=== PATIENT | male | born 1965 | race Two or more races ===

== ENCOUNTER 2021-11-23 09:30 | Inpatient (IN) | payer OTHER ==
[~2021-11-23] VITALS: Ht 165.1 cm; Wt 70.8 kg
[2021-11-23] MEDS ORDERED: MORPHINE SULFATE INJ 2 MG/ml SYRG IV PRN (19:00)
[2021-11-23] MEDS ORDERED: DEXTROSE (50%) 50ML SYRG IV PRN (19:00)
[2021-11-23] MEDS ORDERED: NITROGLYCERIN 0.4 MG SL TAB SL PRN (19:00)
[2021-11-23 20:01] LABS: Basophils # (auto) 0 10 ^3/uL (0-0.2); Basophils % (auto) 0.6 % (0.0-2.0); Eosinophils # (auto) 0.1 10 ^3/uL (0-0.8); Eosinophils % (auto) 1.2 % (0.0-7.0); Hematocrit 39.6 % (41.0-53.0); Hemoglobin 13.1 g/dL (13.5-17.5); Lymphocytes # (auto) 1.4 10 ^3/uL (0.4-5.4); Lymphocytes % (auto) 27.3 % (10.0-50.0); Mean Corpuscular Hemoglobin 28.6 pg (28.0-32.0); Mean Corpuscular Hgb Conc. 33.2 g/dL (32.0-36.0); Monocytes # (auto) 0.5 10 ^3/uL (0-1.3); Monocytes % (auto) 9.8 % (0.0-12.0); Neutrophils # (auto) 3.2 10 ^3/uL (1.6-8.6); Neutrophils % (auto) 61.1 % (37.0-80.0); Red Cell Distribution Width 13.8 % (11.8-14.3); White Blood Cell 5.2 10^3/uL (4.4-10.8)
[2021-11-23 20:19] LABS: Albumin 3.3 g/dL (3.4-5.0); Calcium 8.3 mg/dL (8.5-10.1)
[2021-11-23 20:22] LABS: Bilirubin, Total 0.3 mg/dL (0.2-1.0); Total Protein 6.9 g/dL (6.4-8.2)
[2021-11-23 20:56] LABS: INR 0.97 (0.9-1.15); Partial Thromboplastin Time 24.8 sec (24.6-33.4)
[2021-11-23 22:00] VITALS: BP 116/74
[2021-11-24 05:00] VITALS: BP 118/79
[2021-11-24] MEDS ORDERED: InsuLIN REG 1unit/0.01ml Soln (100units/ml) SC SCH ×4 (07:00→22:00)
[2021-11-24] MEDS ORDERED: glipiZIDE 5 MG TAB PO SCH (07:00)
[2021-11-24 08:00] VITALS: BP 112/74
[2021-11-24] MEDS ORDERED: ACCU-CHEK COMFORT CURVE STRIP VI SCH ×3 (10:00→22:00)
[2021-11-24 12:00] VITALS: BP 112/74
[2021-11-24] MEDS: ASPirin 81 mg TAB PO SCH (12:37)
[2021-11-24] MEDS: METOPROLOL TARTRATE 25 MG TAB PO SCH (12:38)
[2021-11-24] MEDS: ENOXAPARIN SOD 40 MG/0.4 ML SYRINGE SC SCH (12:38)
[2021-11-24] MEDS: SOD CHL 0.45% 1,000 ML IV SCH ×2 (12:39→20:24)
[2021-11-24 16:45] VITALS: BP 117/75
[2021-11-24] MEDS: glipiZIDE 5 MG TAB PO SCH (17:10)
[2021-11-24] MEDS ORDERED: InsuLIN REG 1unit/0.01ml Soln (100units/ml) SC STA (21:05)
[2021-11-24] MEDS ORDERED: DEXTROSE (50%) 50ML SYRG IV PRN ×3 (21:15→21:45)
[2021-11-24 22:00] VITALS: BP 112/69
[2021-11-24] MEDS: InsuLIN REG 1unit/0.01ml Soln (100units/ml) SC SCH (22:03)
[2021-11-24] MEDS: ACCU-CHEK COMFORT CURVE STRIP VI SCH (22:04)
[2021-11-25] VITALS (10 sets, daily range): BP systolic 107–129; BP diastolic 56–86
[2021-11-25] MEDS: ACCU-CHEK COMFORT CURVE STRIP VI SCH ×6 (01:21→22:31)
[2021-11-25] MEDS: InsuLIN REG 1unit/0.01ml Soln (100units/ml) SC SCH ×6 (01:21→22:34)
[2021-11-25] MEDS: SOD CHL 0.45% 1,000 ML IV SCH (06:53)
[2021-11-25] MEDS: glipiZIDE 5 MG TAB PO SCH ×2 (06:54→19:20)
[2021-11-25] MEDS ORDERED: InsuLIN REG 1unit/0.01ml Soln (100units/ml) SC SCH (07:00)
[2021-11-25] MEDS ORDERED: LIDOCAINE 2%HCL (LOCAL ANESTH.) INJ 20ML MDV ONE (07:25)
[2021-11-25] MEDS ORDERED: IOHEXOL 350 MG/ML 100ML IJ ONE (07:25)
[2021-11-25] MEDS ORDERED: IODIXANOL 320MG/ML 100ML BTL IV ONE (07:25)
[2021-11-25] MEDS ORDERED: fentaNYL CITRATE 100 MCG/2 ML VL ONE (08:04)
[2021-11-25] MEDS ORDERED: ANGIOMAX 250 MG VIAL IV ONE (08:04)
[2021-11-25] MEDS ORDERED: SODIUM CHL 0.9% 50 ML ONE ×2 (08:05→08:53)
[2021-11-25] MEDS ORDERED: MIDAZOLAM HCL 2MG/2ML 2ml VIAL (1mg/ml) ONE (08:05)
[2021-11-25] MEDS ORDERED: ATROPINE SULF 1 MG/10ml SYR ONE (08:44)
[2021-11-25] MEDS ORDERED: niCARdipine 25 MG/10 ML VIAL IV ONE (08:45)
[2021-11-25] MEDS ORDERED: PHENYLEPHRINE HCL 10 MG/ML VL ONE (08:45)
[2021-11-25] MEDS ORDERED: EPINEPHrine HCL 1 MG/10 ML SYRG ONE (08:45)
[2021-11-25] MEDS ORDERED: NITROGLYCERIN 5MG/ML 10ML VIAL IV ONE (08:53)
[2021-11-25] MEDS ORDERED: CLOPIDOGREL 300 MG TAB ONE (09:24)
[2021-11-25] MEDS: ASPirin 81 mg TAB PO SCH (15:36)
[2021-11-25] MEDS: METOPROLOL TARTRATE 25 MG TAB PO SCH (15:41)
[2021-11-25] MEDS: ENOXAPARIN SOD 40 MG/0.4 ML SYRINGE SC SCH (15:42)
[2021-11-25] MEDS: SODIUM CHLORIDE 0.9% 1,000 ML IV SCH ×2 (15:42→20:30)
[2021-11-25] MEDS: PANTOPRAZOLE 40 MG TAB PO SCH (15:42)
[2021-11-25] MEDS: ATORVASTATIN 20 MG TAB PO SCH (22:31)
[2021-11-26] MEDS: ACCU-CHEK COMFORT CURVE STRIP VI SCH ×6 (01:47→22:26)
[2021-11-26] MEDS: InsuLIN REG 1unit/0.01ml Soln (100units/ml) SC SCH ×6 (01:49→22:26)
[2021-11-26 05:00] VITALS: BP 114/77
[2021-11-26] MEDS: SODIUM CHLORIDE 0.9% 1,000 ML IV SCH ×2 (05:15→16:30)
[2021-11-26] MEDS: glipiZIDE 5 MG TAB PO SCH ×2 (06:21→17:42)
[2021-11-26 06:23] LABS: Albumin 2.9 g/dL (3.4-5.0); Calcium 7.8 mg/dL (8.5-10.1); Potassium 3.6 mmol/L (3.5-5.1)
[2021-11-26 06:28] LABS: BUN/Creatinine Ratio 16.2; Bilirubin, Total 0.3 mg/dL (0.2-1.0); Total Protein 6.3 g/dL (6.4-8.2)
[2021-11-26 08:40] VITALS: BP 119/79
[2021-11-26] MEDS: CLOPIDOGREL BISULFATE 75 MG TAB PO SCH (09:25)
[2021-11-26] MEDS: METOPROLOL TARTRATE 25 MG TAB PO SCH (09:25)
[2021-11-26] MEDS: ASPirin 81 mg TAB PO SCH (09:25)
[2021-11-26] MEDS: PANTOPRAZOLE 40 MG TAB PO SCH (09:26)
[2021-11-26] MEDS: ENOXAPARIN SOD 40 MG/0.4 ML SYRINGE SC SCH (09:26)
[2021-11-26] MEDS ORDERED: CLOPIDOGREL BISULFATE 75 MG TAB PO SCH (10:00)
[2021-11-26] MEDS: SOD CHL 0.45% 1,000 ML IV SCH (10:50)
[2021-11-26 12:38] VITALS: BP 118/75
[2021-11-26 16:30] VITALS: BP 115/75
[2021-11-26 22:00] VITALS: BP 116/75
[2021-11-26] MEDS: ATORVASTATIN 20 MG TAB PO SCH (22:20)
[2021-11-27] MEDS: InsuLIN REG 1unit/0.01ml Soln (100units/ml) SC SCH ×6 (01:56→21:21)
[2021-11-27] MEDS: ACCU-CHEK COMFORT CURVE STRIP VI SCH ×6 (01:57→21:21)
[2021-11-27] MEDS: SODIUM CHLORIDE 0.9% 1,000 ML IV SCH ×3 (02:30→21:26)
[2021-11-27 05:00] VITALS: BP 117/75
[2021-11-27 06:29] LABS: Basophils # (auto) 0 10 ^3/uL (0-0.2); Basophils % (auto) 0.8 % (0.0-2.0); Eosinophils # (auto) 0.2 10 ^3/uL (0-0.8); Eosinophils % (auto) 3.5 % (0.0-7.0); Hematocrit 38.5 % (41.0-53.0); Hemoglobin 12.8 g/dL (13.5-17.5); Lymphocytes # (auto) 1.9 10 ^3/uL (0.4-5.4); Lymphocytes % (auto) 33.6 % (10.0-50.0); Mean Corpuscular Hemoglobin 28.8 pg (28.0-32.0); Mean Corpuscular Hgb Conc. 33.3 g/dL (32.0-36.0); Mean Corpuscular Volume 86.4 fL (80.0-100.0); Monocytes # (auto) 0.6 10 ^3/uL (0-1.3); Monocytes % (auto) 11.1 % (0.0-12.0); Nucleated Red Blood Cells % 0.1 %; Red Blood Cells 4.45 10^6/uL (4.5-5.90); Red Cell Distribution Width 13.7 % (11.8-14.3); White Blood Cell 5.8 10^3/uL (4.4-10.8)
[2021-11-27] MEDS: glipiZIDE 5 MG TAB PO SCH ×2 (06:37→21:20)
[2021-11-27 06:49] LABS: Albumin 3.3 g/dL (3.4-5.0); Calcium 8.4 mg/dL (8.5-10.1); Potassium 3.6 mmol/L (3.5-5.1)
[2021-11-27 06:54] LABS: BUN/Creatinine Ratio 21.3; Bilirubin, Total 0.4 mg/dL (0.2-1.0); Total Protein 6.5 g/dL (6.4-8.2)
[2021-11-27 08:00] VITALS: BP 121/79
[2021-11-27] MEDS: ASPirin 81 mg TAB PO SCH (10:05)
[2021-11-27] MEDS: CLOPIDOGREL BISULFATE 75 MG TAB PO SCH (10:05)
[2021-11-27] MEDS: ENOXAPARIN SOD 40 MG/0.4 ML SYRINGE SC SCH (10:05)
[2021-11-27] MEDS: METOPROLOL TARTRATE 25 MG TAB PO SCH (10:06)
[2021-11-27] MEDS: PANTOPRAZOLE 40 MG TAB PO SCH (10:06)
[2021-11-27 12:00] VITALS: BP 114/74
[2021-11-27 16:00] VITALS: BP 111/72
[2021-11-27] MEDS ORDERED: ACETAMINOPHEN 325 MG TAB PO PRN (20:45)
[2021-11-27] MEDS: ATORVASTATIN 20 MG TAB PO SCH (21:19)
[2021-11-27] MEDS: DOCUSATE SOD 100 MG CAP PO SCH (21:20)
[2021-11-27 21:51] VITALS: BP 104/67
[2021-11-28] MEDS: ACCU-CHEK COMFORT CURVE STRIP VI SCH ×6 (01:43→22:00)
[2021-11-28] MEDS: InsuLIN REG 1unit/0.01ml Soln (100units/ml) SC SCH ×6 (01:44→22:00)
[2021-11-28 05:00] VITALS: BP 113/78
[2021-11-28] MEDS: glipiZIDE 5 MG TAB PO SCH ×3 (05:21→21:15)
[2021-11-28] MEDS ORDERED: HEPARIN IN NS 1000Units/500mL 0 ML ONE (07:31)
[2021-11-28] MEDS ORDERED: IODIXANOL 320MG/ML 100ML BTL IV ONE ×2 (07:31→16:16)
[2021-11-28] MEDS ORDERED: LIDOCAINE 2%HCL (LOCAL ANESTH.) INJ 20ML MDV ONE ×2 (07:31→16:16)
[2021-11-28 08:00] VITALS: BP 117/85
[2021-11-28] MEDS: SODIUM CHLORIDE 0.9% 1,000 ML IV SCH ×2 (08:30→18:30)
[2021-11-28] MEDS: PANTOPRAZOLE 40 MG TAB PO SCH (09:44)
[2021-11-28] MEDS: CLOPIDOGREL BISULFATE 75 MG TAB PO SCH (09:44)
[2021-11-28] MEDS: ASPirin 81 mg TAB PO SCH (09:44)
[2021-11-28] MEDS: DOCUSATE SOD 100 MG CAP PO SCH ×2 (09:44→21:14)
[2021-11-28] MEDS: ENOXAPARIN SOD 40 MG/0.4 ML SYRINGE SC SCH (09:44)
[2021-11-28] MEDS: METOPROLOL TARTRATE 25 MG TAB PO SCH (09:45)
[2021-11-28 12:00] VITALS: BP 110/71
[2021-11-28] MEDS ORDERED: ANGIOMAX 250 MG VIAL IV ONE (16:32)
[2021-11-28] MEDS ORDERED: fentaNYL CITRATE 100 MCG/2 ML VL ONE (16:32)
[2021-11-28] MEDS ORDERED: MIDAZOLAM HCL 2MG/2ML 2ml VIAL (1mg/ml) ONE (16:32)
[2021-11-28] MEDS ORDERED: SODIUM CHL 0.9% 50 ML ONE (16:33)
[2021-11-28 20:00] VITALS: BP 110/68
[2021-11-28] MEDS: ATORVASTATIN 20 MG TAB PO SCH (21:16)
[2021-11-28 22:00] VITALS: BP 103/65
[2021-11-29] MEDS: ACCU-CHEK COMFORT CURVE STRIP VI SCH ×4 (02:00→14:25)
[2021-11-29] MEDS: InsuLIN REG 1unit/0.01ml Soln (100units/ml) SC SCH ×4 (02:00→14:27)
[2021-11-29] MEDS: SODIUM CHLORIDE 0.9% 1,000 ML IV SCH (04:30)
[2021-11-29] MEDS: glipiZIDE 5 MG TAB PO SCH ×2 (06:00→14:24)
[2021-11-29 09:00] VITALS: BP 115/74
[2021-11-29] MEDS ORDERED: ATOR20TA50 PO (09:22)
[2021-11-29] MEDS ORDERED: CLOP75TA70 PO (09:22)
[2021-11-29] MEDS ORDERED: ASPI-325 PO (09:22)
[2021-11-29] MEDS ORDERED: GLIP5TAB12 PO (09:22)
[2021-11-29] MEDS ORDERED: MET25T PO (09:22)
[2021-11-29] MEDS: ENOXAPARIN SOD 40 MG/0.4 ML SYRINGE SC SCH (09:44)
[2021-11-29] MEDS: ASPirin 81 mg TAB PO SCH (09:44)
[2021-11-29] MEDS: CLOPIDOGREL BISULFATE 75 MG TAB PO SCH (09:44)
[2021-11-29] MEDS: DOCUSATE SOD 100 MG CAP PO SCH (09:44)
[2021-11-29] MEDS: PANTOPRAZOLE 40 MG TAB PO SCH (09:44)
[2021-11-29] MEDS: METOPROLOL TARTRATE 25 MG TAB PO SCH (09:51)
[2021-11-29 13:00] VITALS: BP 116/75
[2021-11-29 13:37] LABS: Hepatitis C Antibody Negative (Negative)
[2021-11-29 15:41] LABS: Hepatitis A Ab IgM Negative
[2021-11-29 15:42] LABS: Hepatitis B Core IgM Negative
[2021-11-29 17:00] VITALS: BP 105/65
== END 2021-11-29 18:10 | DRG 246 ==
LOC: EEVIPCON → UNDOADMIN 17:22 → TELE-EAST 17:22
PROVIDERS: ADMIT Internal Medicine; ATTEND Internal Medicine
PROC: 027035Z Dilation of Coronary Artery, One Artery with Two Drug-eluting Intraluminal Devices, Percutaneous Approach (ICD-10-PCS; principal; 2021-11-25)
PROC: B2111ZZ Fluoroscopy of Multiple Coronary Arteries using Low Osmolar Contrast (ICD-10-PCS; 2021-11-25)
PROC: 027034Z Dilation of Coronary Artery, One Artery with Drug-eluting Intraluminal Device, Percutaneous Approach (ICD-10-PCS; 2021-11-28)
DX: I25.10 Atherosclerotic heart disease of native coronary artery without angina pectoris (principal); E11.00 Type 2 diabetes mellitus with hyperosmolarity without nonketotic hyperglycemic-hyperosmolar coma (NKHHC); E11.65 Type 2 diabetes mellitus with hyperglycemia; E78.5 Hyperlipidemia, unspecified; Z20.822 Contact with and (suspected) exposure to COVID-19; I10 Essential (primary) hypertension; Z79.02 Long term (current) use of antithrombotics/antiplatelets; Z83.3 Family history of diabetes mellitus; Z95.5 Presence of coronary angioplasty implant and graft
CPT/HCPCS: 36415; 71045; 80053; 80074; 82947; 82962; 85025; 85610; 85730; 92928; 92929; 93005; 99152; 99153; C1874; G0378; J1815; J2250; J3490; Q9967